=== PATIENT | male | born 1995 | race Caucasian/White ===

== ENCOUNTER 2020-12-23 14:05 | Emergency (ER) | payer OTHER, SELFPAY ==
[2020-12-23 14:14] VITALS: BP 107/60; PULSE 85; RESP 16; TEMP 37.2; O2SAT 98
--- NOTE | 2020-12-23 14:44 | ED_ITS ---
HPI - Skin/Abscess/Foreign Bdy General Chief complaint: Skin/Abscess/Foreign Body Stated complaint: Possible Spider bite on right Knee Source: patient and RN notes reviewed Limitations: no limitations History of Present Illness HPI narrative: The patient, automotive electrician, presents with skin eruption. Patient states he has about 1/2-week history of right distal inner thigh skin eruption. He first felt he scraped it on a tire but is now developed a central puncta with increasing surrounding redness. No fever, streaking, abscess/induration; symptoms are mild worse with scratching Related Data Allergies Allergy/AdvReac Type Severity Reaction Status Date / Time No Known Allergies Allergy Verified 12/23/20 14:20 Review of Systems Review of Systems: General/Constitutional: No weight loss,fever Eyes: N0: Redness,discharge Ears/Nose/Throat: No: Epistaxis,ear discharge Respiratory: Denies: Hemoptysis Gastrointestinal: No Vomiting, Bleeding-rectal Skin: No Lumps, REPORTS eruption Neurologic: No Focal Weakness,Sz Hematologic: Denies: Petechiae/Purpura Psychiatric: No: Suicida ideationl All Other Systems: Reviewed and Negative PMFSH Comments At time of signature, agree with nursing past medical, surgical, social and family history. There is no relevant family history pertinent to the presenting complaint Exam Narrative: General Appearance: Well nourished, Normocephalic, Conjunctiva clear Mouth/Throat: Normal appearing Neck Exam: Supple Respiratory: Airway patent, No respiratory distress Musculoskeletal: Moves all extremities, Non tender Spine/Back: Normal ROM Skin: Warm, Dry; palm-sized area of redness on the distal thigh with a central puncta Neurological: A&O x3 Psychiatric: Normal mood, Normal affect Course Vital Signs Vital signs: Vital Signs Temperature 98.9 F 12/23/20 14:14 Pulse Rate 85 12/23/20 14:14 Respiratory Rate 16 12/23/20 14:14 Blood Pressure 107/60 12/23/20 14:14 Pulse Oximetry 98 12/23/20 14:14 Temperature 98.9 F 12/23/20 14:14 Pulse Rate 85 12/23/20 14:14 Respiratory Rate 16 12/23/20 14:14 Blood Pressure 107/60 12/23/20 14:14 Pulse Oximetry 98 12/23/20 14:14 Discharge Plan Discharge Clinical Impression: Folliculitis Patient Disposition: Home, Self-Care Condition: Stable Instructions: Antibiotic Form, Cellulitis (ED) Prescriptions: New clindamycin HCl 300 mg capsule 300 mg PO Q6H Qty: 15 RF: 0 mupirocin 2 % ointment 1 applic TOPICAL TID Qty: 30 RF: 0 Follow-up/Referrals: PHYSICIAN,GRIPPER INSTALLER [Primary Care Provider] - Stand Alone Forms: Work/School Release IP
== END 2020-12-23 14:46 | disposition home or self-care (01) ==
PROVIDERS: Emergency Provider Emergency Medicine
DX: L73.9 Follicular disorder, unspecified (principal)
CPT/HCPCS: 99213; G0463